=== PATIENT | female | born 1995 | race Caucasian/White ===

== ENCOUNTER 2023-05-02 20:43 | Emergency (ER) | payer OTHER ==
[~2023-05-02] VITALS: Ht 152.4 cm; Wt 59.0 kg
[2023-05-02 21:01] VITALS: BP_SYST 133; PULSE 94; RESP 20; TEMP 97.2; O2SAT 98
[2023-05-02] MEDS ORDERED: LIDOCAINE 1%, 20 ML MDV 20 ML ONE (22:11)
[2023-05-02 22:38] VITALS: BP_SYST 122; PULSE 88; RESP 18; TEMP 98.3; O2SAT 98
== END 2023-05-02 22:38 | disposition home or self-care (01) ==
LOC: SED 20:43
DX: S61.301A Unspecified open wound of left index finger with damage to nail, initial encounter (principal); X58.XXXA Exposure to other specified factors, initial encounter; Y93.89 Activity, other specified; Y92.89 Other specified places as the place of occurrence of the external cause; Y99.8 Other external cause status
CPT/HCPCS: 99284; 11730; J2001